=== PATIENT | female | born 1955 | race Caucasian/White ===

== ENCOUNTER 2017-11-23 11:01 | Day surgery (SDC) | payer BC ==
[~2017-11-23] VITALS: Ht 167.6 cm; Wt 85.9 kg
[~2017-11-23 11:01] MED LIST: ANTIINFLAMMATORY; CEFU500 PO; PRAV20 PO
== END 2017-11-23 12:33 | disposition home or self-care (01) ==
LOC: ORSCSDS 11:01
PROVIDERS: Anesthesiology
PROC: 3E0R33Z Introduction of Anti-inflammatory into Spinal Canal, Percutaneous Approach (ICD-10-PCS; principal; 2017-11-23 12:00)
DX: M51.16 Intervertebral disc disorders with radiculopathy, lumbar region (principal); Z87.891 Personal history of nicotine dependence; Z79.899 Other long term (current) drug therapy
CPT/HCPCS: J1040

== ENCOUNTER 2018-06-19 11:57 | Emergency (ER) | payer OTHER, BC ==
[~2018-06-19] VITALS: Ht 167.6 cm; Wt 83.9 kg
[~2018-06-19 11:57] MED LIST changes: +Boniva3 MG/3 ML
[2018-06-19] MEDS ORDERED: IBUP600 PO (13:20)
== END 2018-06-19 13:34 | disposition home or self-care (01) ==
LOC: ER 11:57
DX: S16.1XXA Strain of muscle, fascia and tendon at neck level, initial encounter (principal); S00.83XA Contusion of other part of head, initial encounter; V43.52XA Car driver injured in collision with other type car in traffic accident, initial encounter; Z88.0 Allergy status to penicillin; Z79.899 Other long term (current) drug therapy
CPT/HCPCS: 70450; 71045; 72125; 99284-25

== ENCOUNTER → 2023-10-17 | Outpatient (CLI) | payer OTHER ==
[~2023-10-17] MED LIST changes: +IBUP600 PO
[2023-10-20 13:42] LABS: FAT, FECAL - NEUTRAL Normal (Normal); FAT, FECAL - SPLIT Normal (Normal)
== END | disposition home or self-care (01) ==
LOC: LAB SHORT 13:45 → LAB 13:45
PROVIDERS: Physician Assistant
DX: R19.7 Diarrhea, unspecified (principal)
CPT/HCPCS: 82705

== ENCOUNTER → 2023-12-09 | Outpatient (CLI) | payer OTHER ==
[2023-12-12 12:05] LABS: PANCREATIC ELASTASE,FECAL 690 ug/g (>=100)
== END ==
LOC: LAB SHORT 08:00 → LAB 08:00
PROVIDERS: Physician Assistant Medical
DX: K90.9 Intestinal malabsorption, unspecified (principal)
CPT/HCPCS: 82653

== ENCOUNTER 2023-12-21 09:12 | Day surgery (SDC) | payer OTHER ==
[~2023-12-21] VITALS: Ht 167.6 cm; Wt 82.0 kg
[~2023-12-21 09:12] MED LIST changes: +Lactated Ringer's 1,000 ML IV ONE; +propofoL 50 ML IV ONE
[2023-12-21] MEDS ORDERED: Lactated Ringer's 1,000 ML IV ONE (10:12)
[2023-12-21 11:24] VITALS: BP 111/72
== END 2023-12-21 11:26 | disposition home or self-care (01) ==
LOC: ORSCSDS 09:12
PROVIDERS: Specialist
PROC: 0DBB8ZX Excision of Ileum, Via Natural or Artificial Opening Endoscopic, Diagnostic (ICD-10-PCS; principal; 2023-12-21 10:30)
PROC: 0DBE8ZX Excision of Large Intestine, Via Natural or Artificial Opening Endoscopic, Diagnostic (ICD-10-PCS; principal; 2023-12-21 10:30)
DX: R19.4 Change in bowel habit (principal); K64.8 Other hemorrhoids; K57.30 Diverticulosis of large intestine without perforation or abscess without bleeding; E78.5 Hyperlipidemia, unspecified; Z87.891 Personal history of nicotine dependence; Z79.899 Other long term (current) drug therapy
CPT/HCPCS: 88305; J2704; J7120

== ENCOUNTER → 2025-01-07 | Outpatient (CLI) | payer OTHER ==
[~2025-01-07] MED LIST changes: -Lactated Ringer's 1,000 ML IV ONE; -propofoL 50 ML IV ONE
[2025-01-07 17:27] LABS: Bacterial Vaginosis PCR Negative (NEGATIVE); Candida Group, PCR NOT DETECTED (NOT DETECT); Candida glabrata-krusei, PCR NOT DETECTED (NOT DETECT)
== END ==
LOC: LAB 12:31 → LAB SHORT 12:31
DX: Z12.4 Encounter for screening for malignant neoplasm of cervix (principal); N89.8 Other specified noninflammatory disorders of vagina
CPT/HCPCS: 81515; 87624; G0123; G0145

== ENCOUNTER 2025-01-28 12:33 | Day surgery (SDC) | payer OTHER ==
[~2025-01-28] VITALS: Ht 167.6 cm; Wt 81.2 kg
[2025-01-28] VITALS (9 sets, daily range): BP systolic 93–116; BP diastolic 45–65
--- NOTE | 2025-01-28 11:20 | NUR ---
Ambulatory in Day Surgery History, Chart, Medications and Allergies reviewed before start of procedure.Pre-Op teaching done. Pt verbalizes understanding. Patient States Post-Procedure ride home has been arranged.
[~2025-01-28 12:33] MED LIST changes: +ALKUMS300 MG PO; +Bupivacaine 0.25% Epi 1:200000 30 ML Vial ONE; +CeFAZolin Sodium 2,000 MG in NS 100 ML IV SCH; +Dexamethasone Sod Phos 10 MG/ML 1ML VIAL ONE; +FentaNYL Citrate 50 MCG/ML 2 ML Injection ONE; +Lidocaine HCl 4% 5 ML SDA ONE; +Ondansetron HCl 2 MG / ML 2ML Vial ONE; -PRAV20 PO; +Pravastatin Sod80 MG PO; +Rocuronium Bromide 10 MG/ML 5ML Injection IV ONE; +Sugammadex Sodium 200 MG/2ML SDV (100 MG/ML) ONE; +THERA-D2000 UNIT PO
--- NOTE | 2025-01-28 13:09 | NUR ---
01/28/25 1309 Yulissa Menendez PATIENT POSITIONED IN PRONE FOR UPPER BACK WIDE LOCAL EXCISION. PATIENT REPOSITIONED INTO SUPINE FOR RIGHT SENTINEL LYMPH NODE BIOPSY AT 1255.
[2025-01-28] MEDS ORDERED: FentaNYL Citrate 50 MCG/ML 2 ML Injection IV PRN ×2 (13:15)
[2025-01-28] MEDS ORDERED: HYDROmorphone HCl/Pf 1MG SYR IV PRN (13:15)
[2025-01-28] MEDS ORDERED: Ketorolac Tromethamine 30mg Vial ONE (13:19)
[2025-01-28] MEDS ORDERED: Ondansetron HCl 2 MG / ML 2ML Vial IV PRN (13:20)
[2025-01-28] MEDS ORDERED: Albuterol 2.5 MG/3 ML VIAL INH PRN (13:25)
[2025-01-28] MEDS ORDERED: OxyCODONE 5 mg/Acetamin 325 mg TABLET PO PRN (13:40)
--- NOTE | 2025-01-28 14:51 | NUR ---
Discharge instructions reviewed with patient. Patient verbalizes understanding. Copy given to patient to take home. Dressing X2 c/d/i. Patient States Post-Procedure ride home has been arranged. Discharged via wheelchair to private car for ride home.
== END 2025-01-28 14:55 | disposition home or self-care (01) ==
LOC: ORSCMMR 12:33 → MEDS 12:34 → ORSCMMR 14:55
PROVIDERS: Surgery
PROC: 0HX6XZZ Transfer Back Skin, External Approach (ICD-10-PCS; principal; 2025-01-28 11:30)
PROC: 0JB70ZX Excision of Back Subcutaneous Tissue and Fascia, Open Approach, Diagnostic (ICD-10-PCS; principal; 2025-01-28 11:30)
DX: C43.59 Malignant melanoma of other part of trunk (principal); E78.5 Hyperlipidemia, unspecified; G62.9 Polyneuropathy, unspecified; Z79.899 Other long term (current) drug therapy
CPT/HCPCS: 78195; 88305; 88307; 88341; 88342; A9520; J0690; J1100; J1885; J2003; J2405; J2704; J3010; J7120; Q9968